=== PATIENT | female | born 1980 | race Caucasian/White ===

== ENCOUNTER 2017-01-14 19:02 | Emergency (ER) | payer OTHER ==
[~2017-01-14] VITALS: Ht 170.2 cm; Wt 79.8 kg
[2017-01-14 21:39] VITALS: BP 139/109
== END 2017-01-14 21:39 | disposition home or self-care (01) ==
LOC: ED 19:02
DX: N91.2 Amenorrhea, unspecified (principal); B09 Unspecified viral infection characterized by skin and mucous membrane lesions; J02.9 Acute pharyngitis, unspecified

== ENCOUNTER 2017-06-17 18:13 | Emergency (ER) | payer OTHER ==
[~2017-06-17] VITALS: Ht 172.7 cm; Wt 77.6 kg
[2017-06-17 19:04] VITALS: Ht 172.7 cm; Wt 77.6 kg
[2017-06-17 21:48] LABS: BASOPHIL % 0.4 % (0-2); PLATELET COUNT 184 x10^3mcL (130-400); RED CELL DISTRIBUTION WIDTH 14.5 % (11.5-14.5)
[2017-06-17 22:06] LABS: ALKALINE PHOSPHATASE 54 U/L (46-116); ALT/SGPT 18 U/L (14-59); AMYLASE 59 U/L (25-115); AST/SGOT 12 U/L (15-37); BILIRUBIN TOTAL 0.6 mg/dL (0.20-1.00); CALCIUM 7.8 mg/dL (8.5-10.1); CARBON DIOXIDE 23.3 mmol/L (21-32); CHLORIDE SERUM 104 mmol/L (98-107); CREATININE SERUM 0.6 mg/dL (0.6-1.0); GFR1 > 60 mL/min; GLUCOSE SERUM 113 mg/dL (74-106); LIPASE 70 IU/L (73-393); SODIUM SERUM 137 mmol/L (136-145)
[2017-06-17 22:07] LABS: ALBUMIN 2.8 g/dL (3.4-5.0); TOTAL PROTEIN, SERUM 6.1 g/dL (6.4-8.2)
[2017-06-17 22:08] LABS: POTASSIUM SERUM 2.9 mmol/L (3.5-5.1)
[2017-06-18 00:13] LABS: UA SPECIFIC GRAVITY >=1.030 (1.005-1.035); microscopic required? YES; urine erythrocyte NEGATIVE (NEGATIVE)
[2017-06-18 01:58] VITALS: BP 109/65
== END 2017-06-18 01:58 | disposition home or self-care (01) ==
LOC: ED 18:13
PROVIDERS: Emergency Medicine
DX: E87.6 Hypokalemia (principal); O21.2 Late vomiting of pregnancy; Z3A.00 Weeks of gestation of pregnancy not specified
CPT/HCPCS: 83880; J3480; J3490; J7030; J7050

== ENCOUNTER 2019-12-25 23:01 | Emergency (ER) | payer OTHER, SELFPAY ==
[~2019-12-25] VITALS: Ht 157.5 cm; Wt 81.6 kg
[2019-12-25 23:55] VITALS: Ht 157.5 cm; Wt 81.6 kg
[2019-12-26 03:34] VITALS: BP 101/60
== END 2019-12-26 03:34 | disposition home or self-care (01) ==
LOC: ED 23:01
DX: U07.1 COVID-19 (principal)
CPT/HCPCS: Q0092; U0003-CS